=== PATIENT | female | born 1950 | race Caucasian/White ===

== ENCOUNTER 2016-10-17 18:52 | Emergency (ER) | payer MEDICARE ==
[2016-10-17 20:21] VITALS: TEMP 97.8; BMI 13.3
[2016-10-17 20:33] LABS: AUTOMATED BASOPHIL 0.9 % (0-2); AUTOMATED EOSINOPHIL 1.8 % (0-5); AUTOMATED LYMPH 45.6 % (17-44); AUTOMATED MONOCYTE 6.1 % (3-10); AUTOMATED NEUTROPHIL 45.6 % (45-76); MPV 7.3 fL (7.4-10.4)
[2016-10-17 20:43] LABS: BLOOD UREA NITROGEN 13 MG/DL (7-17); CALCIUM 9.4 MG/DL (8.4-10.2); CALCULATED OSMOLALITY 270 MOs/Kg (270-290); CHLORIDE 104 mEq/L (98-107); ETOH-MGDL < 10 mg/dL; GLUCOSE 80 MG/DL (70-99); SODIUM LEVEL 141 mEq/L (137-146); TOTAL PROTEIN 7.7 G/DL (6.3-8.2)
[2016-10-17 20:45] LABS: ALL NEG? NO
[2016-10-17 20:49] LABS: LEUKOCYTES/URINE TRACE (NEGATIVE); NITRITE/URINE NEG (NEGATIVE); URINE OCCULT BLOOD NEG (NEG/TRACE)
[2016-10-17 21:04] LABS: MDMA* NEG (NEGATIVE); METHAMPHETAMINES NEG (NEGATIVE); OXYCODONE NEG (NEGATIVE)
[2016-10-17 21:10] LABS: RBC/URINE 0-2 (0-5); WBC/URINE 0-2 (0-5)
--- NOTE | 2016-10-17 22:49 | EDPRACDOC ---
- General Information Stated Complaint: SI,BEHAVIOR Time Seen by Provider: 10/17/16 22:18 Information Source: Patient, Strip Presser Mode of Arrival: Ambulance Home Medications: Home Medications Sertraline HCl [Zoloft] 25 mg PO DAILY 03/05/15 Diazepam [Valium] 2.5 - 5 mg PO BID PRN 06/30/15 Omeprazole [Prilosec] 20 mg PO BID 06/30/15 Trihexyphenidyl [Artane] 2 mg PO BID 06/30/15 Lurasidone HCl [Latuda] 20 mg PO DAILY 12/04/15 Vitamin E 400 unit PO DAILY 01/13/16 Lurasidone HCl [Latuda] 10 mg PO DAILY PRN 10/17/16 Allergies/Adverse Reactions: Allergies Allergy/AdvReac Type Severity Reaction Status Date / Time No Known Allergies Allergy Verified 01/13/16 12:54 - History of Present Illness HPI: PT REPORTS THE [facility]IST[facility] WHERE SHE LIVES, GOT HER UPSET. THE TRADING MANAGER SAID SOMETHING THAT MADE HER UPSET. THIS OCCURRED ABOUT 1630 TODAY. PT CALLED THE POLICE BECAUSE SHE WAS AFRAID SHE WAS GOING TO GET PUT OUT OF THE APARTMENT. H/O TARDIVE DYSKINESIA. PT WAS WASHING THE DISHES, PULLED A KNIFE OUT OF THE SINK, AND THOUGHT ABOUT WHAT CARLOS SAID AFTER SHE FOUND REGGIE . SHE SAID IT WAS A VERY BRIEF THOUGHT, BUT DID NOT INTEND ON HURTING HERSELF. PT DOES HAVE 2 PRIOR SUICIDE ATTEMPTS. BY PILL OVERDOSE. PT WAS CLEANING UP BECAUSE SHE THOUGHT HER TRADING MANAGER WAS ON HER WAY OVER, SHE WAS GOING TO [place]. PT DENIES FEELING DEPRESSED, SUICIDAL/HOMICIDAL. Suicidal Plan: Reports: None Suicidal Attempt: Reports: N - Treatment Prior to ED Arrival Reported Medications/Treatment [employer] [facility] Treatment BLS IV No ED Past Medical History - History Reviewed Yes Nurses notes reviewed and agree except as marked - Patient Medical History Psychological History: Reports: Anxiety, Schizophrenia. Denies: Depression Surgical History: Reports: Tonsillectomy/Adnoidectomy, Other (D&C) - Social Medical History Smoking Status: Never smoker EDM Review of Systems - Review of Systems ROS Negative Except as Marked: Yes All systems reviewed and were negative except as marked Respiratory: No Symptoms Reported Cardiovascular: No Symptoms Reported Gastrointestinal: No Symptoms Reported Neurological: No Symptoms Reported Musculoskeletal: No Symptoms Reported - Physical Exam Constitutional: Alert (Awake), No apparent distress Oriented to: Time, Person, Place Last recorded Vital Signs: Last Vital Signs Temp 97.8 F 10/17/16 20:11 Pulse 73 10/17/16 20:11 Resp 20 10/17/16 20:11 BP 182/82 H 10/17/16 20:11 Pulse Ox 97 10/17/16 20:11 Oxygen Pulse Oxygen Saturation 97 O2 Device Room Air Oxygen Flow Rate Fraction of Inspired Oxygen ( FIO2) - HEENT Head: Normal ( normocephalic) Eye Exam: Normal (PERRL, EOMI, Sclera white) Oropharynx: Normal (Pharynx:Moist without exudate,Gums-no swelling) Nose: No Symptoms Reported (septum midline) Neck: Normal (FROM, trachea at midline) - Respiratory/Cardiovascular Respiratory: Normal - CTA (BBS clear to auscultation without adventitious sounds ) Cardiovascular: Normal (RRR without murmur, gallop or rub) - GI Auscultation: Normal (NABS) Palpation: Normal (Soft,No rebound or guarding, non distended) Tenderness: Non tender Stein's Sign: Negative - Musculoskeletal Back: Normal (Non-Tender) Extremities: Normal (Normal tone, Pulses 2+ No cyanosis or edema, FROM) - Integumentary Skin: Normal, Warm, Dry Lymphatics: Normal (no adenopathy) - Neurologic Memory Impaired: Normal Motor Function: Normal (Normal tone, Pulses 2+ No cyanosis or edema, FROM) Cranial Nerve: Normal (CN II-X11 intact sensation, strength 5/5) Cerebellar: Normal Mood Description: Normal Perception: Normal - Results 10/17/16 20:22 10/17/16 20:22 WBC 7.6 xk/uL (3.8-10.8) 10/17/16 20:22 RBC 4.31 xM/uL (4.20-5.40) 10/17/16 20:22 Hgb 13.2 g/dL (12.0-16.0) 10/17/16 20:22 Hct 38.3 % (36-47) 10/17/16 20:22 MCV 89 fL (81-99) 10/17/16 20:22 MCH 30.6 pg (27-32) 10/17/16 20:22 MCHC 34.4 g/dl (33-36) 10/17/16 20:22 RDW 12.4 % (11.5-14.5) 10/17/16 20:22 Plt Count 253 xk/uL (130-400) 10/17/16 20:22 MPV 7.3 fL (7.4-10.4) L 10/17/16 20:22 Neut % (Auto) 45.6 % (45-76) 10/17/16 20:22 Lymph % (Auto) 45.6 % (17-44) H 10/17/16 20:22 Faulkner % (Auto) 6.1 % (3-10) 10/17/16 20:22 Eos % (Auto) 1.8 % (0-5) 10/17/16 20:22 Baso % (Auto) 0.9 % (0-2) 10/17/16 20:22 Absolute Neuts (auto) 3.42 xk/uL (1.7-8.2) 10/17/16 20:22 Absolute Lymphs (auto) 3.42 xk/uL (0.65-4.75) 10/17/16 20:22 Sodium 141 mEq/L (137-146) 10/17/16 20:22 Potassium 4.0 mEq/L (3.5-5.1) 10/17/16 20:22 Chloride 104 mEq/L (98-107) 10/17/16 20:22 Carbon Dioxide 26 mMOL/L (22-33) 10/17/16 20:22 Anion Gap 15 mEq/L (8-16) 10/17/16 20:22 BUN 13 MG/DL (7-17) 10/17/16 20:22 Creatinine 0.80 MG/DL (0.52-1.04) 10/17/16 20:22 Estimated GFR (MDRD) > 60 mL/min (>=60) 10/17/16 20:22 Glucose 80 MG/DL (70-99) 10/17/16 20:22 Calculated Osmolality 270 MOs/Kg (270-290) 10/17/16 20:22 Calcium 9.4 MG/DL (8.4-10.2) 10/17/16 20:22 Total Bilirubin 0.5 MG/DL (0.2-1.3) 10/17/16 20:22 AST 23 IU/L (14-36) 10/17/16 20:22 ALT 22 IU/L (9-52) 10/17/16 20:22 Alkaline Phosphatase 107 IU/L (55-165) 10/17/16 20:22 Total Protein 7.7 G/DL (6.3-8.2) 10/17/16 20:22 Albumin 4.3 G/DL (3.5-5.0) 10/17/16 20:22 Urine Color Yellow 10/17/16 20:24 Urine Clarity Clear 10/17/16 20:24 Urine pH 7.0 (5.0-8.0) 10/17/16 20:24 Ur Specific Chilton 1.005 10/17/16 20:24 Urine Protein Neg (NEG/TRACE) 10/17/16 20:24 Urine Glucose (UA) Neg (NEGATIVE) 10/17/16 20:24 Urine Ketones Neg (NEGATIVE) 10/17/16 20:24 Urine Occult Blood Neg (NEG/TRACE) 10/17/16 20:24 Urine Nitrite Neg (NEGATIVE) 10/17/16 20:24 Urine Bilirubin Neg (NEGATIVE) 10/17/16 20:24 Urine Urobilinogen 0.2 MG/DL (0-1) 10/17/16 20:24 Ur Leukocyte Esterase Trace (NEGATIVE) 10/17/16 20:24 Urine RBC 0-2 (0-5) 10/17/16 20:24 Urine WBC 0-2 (0-5) 10/17/16 20:24 Ur Epithelial Cells 1+ 10/17/16 20:24 Urine Bacteria Few (NEG/FEW) 10/17/16 20:24 Urine Mucus Occ (NEG/OCC) 10/17/16 20:24 Urine Opiates Screen Neg (NEGATIVE) 10/17/16 20:24 Ur Oxycodone Screen Neg (NEGATIVE) 10/17/16 20:24 Urine Methadone Screen Neg (NEGATIVE) 10/17/16 20:24 Ur Barbiturates Screen Neg (NEGATIVE) 10/17/16 20:24 Ur Tricyclics Screen Neg (NEGATIVE) 10/17/16 20:24 Ur Phencyclidine Scrn Neg (NEGATIVE) 10/17/16 20:24 Ur Amphetamines Screen Neg (NEGATIVE) 10/17/16 20:24 U Methamphetamines Scrn Neg (NEGATIVE) 10/17/16 20:24 Urine MDMA Screen Neg (NEGATIVE) 10/17/16 20:24 U Benzodiazepines Scrn *positive* (NEGATIVE) H 10/17/16 20:24 Urine Cocaine Screen Neg (NEGATIVE) 10/17/16 20:24 Ur THC Screen Neg (NEGATIVE) 10/17/16 20:24 Plasma/Serum Ethyl Alc % (<0.01) 10/17/16 20:22 Lab Results 10/17/16 10/17/16 10/17/16 20:24 20:24 20:22 WBC 7.6 RBC 4.31 Hgb 13.2 Hct 38.3 MCV 89 MCH 30.6 MCHC 34.4 RDW 12.4 Plt Count 253 MPV 7.3 L Neut % (Auto) 45.6 Lymph % (Auto) 45.6 H Faulkner % (Auto) 6.1 Eos % (Auto) 1.8 Baso % (Auto) 0.9 Absolute Neuts (auto) 3.42 Absolute Lymphs (auto) 3.42 Sodium Potassium Chloride Carbon Dioxide Anion Gap BUN Creatinine Estimated GFR (MDRD) Glucose Calculated Osmolality Calcium Total Bilirubin AST ALT Alkaline Phosphatase Total Protein Albumin Urine Color Yellow Urine Clarity Clear Urine pH 7.0 Ur Specific [place]ilton 1.005 Urine Protein Neg Urine Glucose (UA) Neg Urine Ketones Neg Urine Occult Blood Neg Urine Nitrite Neg Urine Bilirubin Neg Urine Urobilinogen 0.2 Ur Leukocyte Esterase Trace Urine RBC 0-2 Urine WBC 0-2 Ur Epithelial Cells 1+ Urine Bacteria Few Urine Mucus Occ Urine Opiates Screen Neg Ur Oxycodone Screen Neg Urine Methadone Screen Neg Ur Barbiturates Screen Neg Ur Tricyclics Screen Neg Ur Phencyclidine Scrn Neg Ur Amphetamines Screen Neg U Methamphetamines Scrn Neg Urine MDMA Screen Neg U Benzodiazepines Scrn *positive* H Urine Cocaine Screen Neg Ur THC Screen Neg Plasma/Serum Ethyl Alc 10/17/16 20:22 WBC RBC Hgb Hct MCV MCH MCHC RDW Plt Count MPV Neut % (Auto) Lymph % (Auto) Faulkner % (Auto) Eos % (Auto) Baso % (Auto) Absolute Neuts (auto) Absolute Lymphs (auto) Sodium 141 Potassium 4.0 Chloride 104 Carbon Dioxide 26 Anion Gap 15 BUN 13 Creatinine 0.80 Estimated GFR (MDRD) > 60 Glucose 80 Calculated Osmolality 270 Calcium 9.4 Total Bilirubin 0.5 AST 23 ALT 22 Alkaline Phosphatase 107 Total Protein 7.7 Albumin 4.3 Urine Color Urine Clarity Urine pH Ur Specific Chilton Urine Protein Urine Glucose (UA) Urine Ketones Urine Occult Blood Urine Nitrite Urine Bilirubin Urine Urobilinogen Ur Leukocyte Esterase Urine RBC Urine WBC Ur Epithelial Cells Urine Bacteria Urine Mucus Urine Opiates Screen Ur Oxycodone Screen Urine Methadone Screen Ur Barbiturates Screen Ur Tricyclics Screen Ur Phencyclidine Scrn Ur Amphetamines Screen U Methamphetamines Scrn Urine MDMA Screen U Benzodiazepines Scrn Urine Cocaine Screen Ur THC Screen Plasma/Serum Ethyl Alc - Additional Information Additional Information: PT WAS CLEANING UP BECAUSE SHE DID NOT WANT TO LOSE HER APARTMENT. NO SUICIDAL. I FEEL SHE WAS JUST BEING VERY CANDID WITH THE OFFICER ABOUT WAS IN HER HEAD FOR A MOMENT BUT PT IS NOT A DANGER TO HERSELF OR OTHERS. Decision Time to Discharge: 22:53 - Departure Yes I personally saw and evaluated the patient. Disposition: Home Condition: Stable Final Diagnosis: Well adult health check Education/Counseling Given To: Patient Education/Counseling Given Regarding: Diagnosis Referrals: Angella Esparza MD [Primary Care Provider] - As Needed
[2016-10-17 23:17] VITALS: BP 183/106; PULSE 88
== END 2016-10-17 23:15 | disposition home or self-care (01) ==
LOC: ED 18:52
DX: Z71.1 Person with feared health complaint in whom no diagnosis is made (principal)
CPT/HCPCS: 36415; 80053; 80307; 81001; 85025; 86592; 99284